=== PATIENT | female | born 1970 | race Caucasian/White ===

== ENCOUNTER 2024-11-04 13:52 | Outpatient (REF) | payer OTHER, SELFPAY ==
--- NOTE | 2024-11-04 | EMG_ITS ---
Chief complaint: Chronic right-sided neck pain that radiates to the fingers. For the last 3 months, started having numbness on right 4th and 5th digits. Reason for referral: Evaluate for ulnar neuropathy versus radiculopathy Referred by: Dr. Olivares Procedure done: Right upper extremity NCS/EMG Precautions and/or limitations: None The limb temperature was monitored continuously and remained between 32-36 degrees C during the performance of the NCS. Nerve Conduction Studies Anti Sensory Summary Table ?Stim Site NR Onset (ms) Norm Onset (ms) Peak (ms) Norm Peak (ms) O-P Amp (?V) Norm O-P Amp Site1 Site2 Delta-0 (ms) Dist (cm) Ar (m/s) Norm Ar (m/s) Right Median Anti Sensory (2nd Digit) Wrist ? 2.2 2.8 <3.6 51.1 >10 Wrist 2nd Digit 2.2 14.0 64 Right Ulnar Anti Sensory (5th Digit) Wrist ? 1.8 2.8 <3.7 52.3 >15.0 Wrist 5th Digit 1.8 14.0 78 Motor Summary Table ?Stim Site NR Onset (ms) Norm Onset (ms) O-P Amp (mV) Norm O-P Amp iAmp (mV) Amp (1st) (%) Site1 Site2 Delta-0 (ms) Dist (cm) Ar (m/s) Norm Ar (m/s) Right Median Motor (Abd Poll Brev) Wrist ? 2.8 <3.9 14.9 >4.5 16.7 100.0 Elbow Wrist 3.2 18.5 58 >45 Elbow ? 6.0 15.0 17.1 100.7 Right Ulnar Motor (Abd Dig Minimi) Wrist ? 2.4 <3.0 14.4 >5 16.9 100.0 B Elbow Wrist 2.9 18.0 62 >45 B Elbow ? 5.3 13.9 16.7 96.5 A Elbow B Elbow 1.3 10.0 77 >45 A Elbow ? 6.6 13.1 15.8 91.0 Comparison Summary Table ?Stim Site NR Peak (ms) Norm Peak (ms) P-T Amp (?V) Site1 Site2 Delta-P (ms) Norm Delta (ms) Right Median/Radial Dig I Comparison (Digit 1 - 10cm) Median ? 2.3 <2.9 116.3 Median Radial 0.1 Radial ? 2.2 <2.8 27.0 EMG ?Side Muscle Nerve Root Ins Act Fibs Psw Amp Dur Poly Recrt Int Pat Comment Right 1stDorInt Ulnar C8-T1 Nml Nml Nml Nml Nml 0 Nml Complete Right FlexCarRad Median C6-7 Nml Nml Nml Nml Nml 0 Nml Complete Right Biceps Musculocut C5-6 Nml Nml Nml Nml Nml 0 Nml Complete Right Triceps Radial C6-7-8 Nml Nml Nml Nml Nml 0 Nml Complete Right Deltoid Axillary C5-6 Nml Nml Nml Nml Nml 0 Nml Complete FINDINGS: All motor and sensory nerves tested showed normal latencies, amplitudes and conduction velocities. Concentric needle EMG was performed in selected muscles of the right upper extremity. Study did not reveal signs of electric abnormalities as shown in the table above. IMPRESSION: 1. This is a normal study. 2. There is no electrodiagnostic evidence for median neuropathy, ulnar neuropathy, brachial plexopathy, or cervical radiculopathy. Thank you for your kind referral. Ann Quevedo MD, KAMINI Board Certified, [place] [employer] and Rehabilitation (ABPMR) Board Certified, [place] Board [employer] Electrodiagnostic Medicine (ABEM) [place] [id number] [facility]
--- OUTSIDE RECORDS SUMMARY | 2024-11-04 14:33 | XMS_ITS | Patient Health Record ---
Author Organization [facility] Address [address] [place] [address] Support Name Relationship Address Phone Geetha Gayla Emergency Contact [address] [place] [address] Gayla Iniguez Guarantor Unknown [phone] Allergies Allergen (clinical drug ingredient) Drug/Non Drug Allergy documented on EMR Reaction Allergy Type Onset Date Status codeine codeine Unknown Drug Allergy Active Reason For Referral No Information Medications Medication SIG (Take, Route, Fr equency, Duration) Notes Start Date End Date Status Zoloft Active benzonatate 200 mg 1 cap(s) orally Ever y 8 hrs PRN; Duration: 7 days 10/21/2021 Active VESIcare Active Plan Of Treatment No Information Insurance Providers Payer Name Payer Address Payer Phone Subscriber Number Group Number Insured Name Patient Relationship to Insured Coverage Start Date Coverage End Date [facility] [address] [place] [phone] [id number] Gayla Iniguez Self - patient is the insured Medications Administered Medication Instructions Date of Administration Dosage Notes Toradol Ketorolac 10/21/2021 60 mg Lot # [id number] Verified by [facility] (General) History Medical History History ICD Code Anxiety Overactive Bladder (OAB) Allergies Arthritis Surgical History Surgery Date(Month/Year) Breast Biopsy Section
== END 2024-11-04 13:53 | disposition home or self-care (01) ==
LOC: HO.NEURO 13:52
PROVIDERS: Visit Provider Physical Medicine & Rehabilitation
DX: M54.12 Radiculopathy, cervical region (principal); R20.0 Anesthesia of skin
CPT/HCPCS: 95886; 95909

== ENCOUNTER → 2024-11-04 13:55 | Outpatient (BNV) | payer OTHER, SELFPAY | PROVIDERS: Visit Provider Physical Medicine & Rehabilitation | DX: M54.2 Cervicalgia (principal) | CPT/HCPCS: 95886; 95909 ==